=== PATIENT | male | born 1990 | race Caucasian/White ===

== ENCOUNTER 2016-12-16 20:49 | Emergency (ER) | payer OTHER ==
[~2016-12-16] VITALS: Ht 157.5 cm; Wt 71.4 kg
[2016-12-16 21:03] VITALS: BP 148/85
[2016-12-16] MEDS ORDERED: PROPARACAINE OPHTH 0.5%, 15ML ONE (22:06)
[2016-12-16] MEDS ORDERED: FLUORESCEIN OPHTHALMIC 1 MG STRIP ONE (22:06)
[2016-12-16] MEDS ORDERED: ERYTHROMYCIN OPHTH 0.5%, 1GM RIGHTEYE ONE (23:00)
== END 2016-12-16 22:53 | disposition home or self-care (01) ==
LOC: ED 22:00
DX: S05.01XA Injury of conjunctiva and corneal abrasion without foreign body, right eye, initial encounter (principal); X58.XXXA Exposure to other specified factors, initial encounter; Y93.89 Activity, other specified; Y92.89 Other specified places as the place of occurrence of the external cause; Y99.8 Other external cause status
CPT/HCPCS: 99283